=== PATIENT | female | born 1960 | race African-American/Black ===

== ENCOUNTER 2017-11-16 16:52 | Emergency (ER) | payer MEDICAID, OTHER ==
[~2017-11-16] VITALS: Ht 165.1 cm; Wt 95.3 kg
[2017-11-16 17:32] VITALS: BP 145/82
== END 2017-11-16 21:24 | disposition left against medical advice (07) ==
LOC: ER 16:59
DX: R06.02 Shortness of breath (principal); J45.909 Unspecified asthma, uncomplicated; Z53.21 Procedure and treatment not carried out due to patient leaving prior to being seen by health care provider
CPT/HCPCS: 71046